=== PATIENT | female | born 1940 | race Caucasian/White ===

== ENCOUNTER 2018-11-13 08:12 | Day surgery (SDC) | payer OTHER ==
[~2018-11-13] VITALS: Ht 167.6 cm; Wt 59.8 kg
[2018-11-13 08:34] VITALS: BP 142/70
[2018-11-13] MEDS ORDERED: ACET-2119 PO (09:01)
[2018-11-13] MEDS ORDERED: FOLI1TAB16 PO (09:01)
[2018-11-13] MEDS ORDERED: ATOR40TA71 PO (09:01)
[2018-11-13] MEDS ORDERED: CHOL10002 PO (09:01)
[2018-11-13] MEDS ORDERED: FURO-150 PO (09:01)
[2018-11-13] MEDS ORDERED: GABA-530 PO (09:01)
[2018-11-13] MEDS ORDERED: SIME125C PO (09:01)
[2018-11-13] MEDS ORDERED: SERT25TA PO (09:01)
[2018-11-13] MEDS ORDERED: PRAS10TA6 PO (09:01)
[2018-11-13] MEDS ORDERED: LIDOcaine 1% 30ml preserv. free vial IJ STA (09:24)
[2018-11-13 10:15] VITALS: BP 135/68
[2018-11-13 10:35] VITALS: BP 141/63
== END 2018-11-13 10:45 ==
LOC: SSTAY O 08:12
PROVIDERS: ATTEND Radiology Vascular & Interventional Radiology
DX: J90 Pleural effusion, not elsewhere classified (principal); Z53.8 Procedure and treatment not carried out for other reasons; E78.5 Hyperlipidemia, unspecified; I50.9 Heart failure, unspecified; I11.0 Hypertensive heart disease with heart failure; I25.10 Atherosclerotic heart disease of native coronary artery without angina pectoris; J44.9 Chronic obstructive pulmonary disease, unspecified; Z79.899 Other long term (current) drug therapy; Z88.8 Allergy status to other drugs, medicaments and biological substances
CPT/HCPCS: 76604

== ENCOUNTER 2019-02-26 13:11 | Outpatient (CLI) | payer MEDICARE, MEDICAID ==
[~2019-02-26] VITALS: Ht 160 cm; Wt 54.4 kg
[~2019-02-26 13:11] MED LIST: ACET-2119 PO; ATOR40TA71 PO; CHOL10002 PO; FOLI1TAB16 PO; FURO-150 PO; GABA-530 PO; PRAS10TA6 PO; SERT25TA PO; SIME125C PO
[2019-02-26] MEDS ORDERED: albuterol 2.5 MG/3 ML nebule ONE (13:45)
[2019-02-26] MEDS ORDERED: albuterol 2.5 MG/3 ML nebule NEB ONE (13:50)
== END 2019-02-26 23:59 | disposition home or self-care (01) ==
LOC: RT 13:11
PROVIDERS: ATTEND Physician Assistant
DX: J44.9 Chronic obstructive pulmonary disease, unspecified (principal); J98.4 Other disorders of lung; I10 Essential (primary) hypertension; Z87.891 Personal history of nicotine dependence; Z79.899 Other long term (current) drug therapy
CPT/HCPCS: 94060; 94760